=== PATIENT | female | born 2000 | race African-American/Black ===

== ENCOUNTER 2020-07-29 11:54 | Emergency (ER) | payer MEDICAID ==
[~2020-07-29] VITALS: Ht 160 cm; Wt 57.0 kg
[2020-07-29] MEDS ORDERED: IBUP-2029 MT (15:35)
[2020-07-29] MEDS ORDERED: IBUPROFEN 600MG TABLET PO ONE (15:45)
[2020-07-29 16:05] VITALS: BP 108/68
== END 2020-07-29 16:22 | disposition home or self-care (01) ==
LOC: ER 11:54
DX: R07.89 Other chest pain (principal); F12.10 Cannabis abuse, uncomplicated; J45.909 Unspecified asthma, uncomplicated
CPT/HCPCS: 71045; 81025; 93005; 99283; Z7610